=== PATIENT | female | born 1960 | race Caucasian/White ===

== ENCOUNTER → 2017-09-20 | Outpatient (CLI) | payer BC ==
[~2017-09-20] VITALS: Ht 160 cm; Wt 70.6 kg
[~2017-09-20] MED LIST: ALLO100T30 PO; ASPI-515 PO; ATOR20TA9 PO; BRAN1000 PO; CARV6.252 PO; CLON0.1T PO; ERGO500017 PO; FENTANYL PF 100 MCG/2ML ONE; FLUMAZENIL 0.1 MG/1 ML, 5ML ONE; GARL500C PO; LACT1CAP35 PO; LIDOCAINE 1%, 20ML ONE; LISI40TA PO; MIDAZOLAM 1 MG/ML, 5ML ONE; NALOXONE 1 MG/ML, 2ML ONE; PRED20TA PO; SODI650T PO; SODIUM CHLORIDE 0.9% 1,000 ML IV SCH
[2017-09-20 07:18] VITALS: BP 169/83
== END ==
LOC: OUT 05:58 → EDSTATUS 07:30 → OUT 17:00
PROVIDERS: ATTEND Internal Medicine Nephrology
DX: I12.9 Hypertensive chronic kidney disease with stage 1 through stage 4 chronic kidney disease, or unspecified chronic kidney disease (principal); N18.4 Chronic kidney disease, stage 4 (severe); N05.2 Unspecified nephritic syndrome with diffuse membranous glomerulonephritis; E79.0 Hyperuricemia without signs of inflammatory arthritis and tophaceous disease; E55.9 Vitamin D deficiency, unspecified; E61.1 Iron deficiency; E21.0 Primary hyperparathyroidism; E83.52 Hypercalcemia; Z87.441 Personal history of nephrotic syndrome
CPT/HCPCS: 36415; 85610; J2250; J3010; J7030; 77012; J3490; J2310

== ENCOUNTER 2018-04-09 08:16 | Day surgery (SDC) | payer BC ==
[~2018-04-09] VITALS: Ht 160 cm; Wt 62.0 kg
[~2018-04-09 08:16] MED LIST changes: -FENTANYL PF 100 MCG/2ML ONE; -FLUMAZENIL 0.1 MG/1 ML, 5ML ONE; -LIDOCAINE 1%, 20ML ONE; -MIDAZOLAM 1 MG/ML, 5ML ONE; -NALOXONE 1 MG/ML, 2ML ONE; -SODIUM CHLORIDE 0.9% 1,000 ML IV SCH
[2018-04-09] MEDS ORDERED: SODIUM CHLORIDE 0.9% 1,000 ML IV SCH (08:36)
[2018-04-09 08:37] VITALS: BP 162/89
[2018-04-09] MEDS ORDERED: PLEASE ENTER HEIGHT AND WEIGHT MC SCH (09:00)
[2018-04-09] MEDS ORDERED: PROTAMINE SULFATE 10 MG/ML, 5ML ONE (12:02)
[2018-04-09] MEDS ORDERED: HEPARIN 1,000 UNITS/ML, 10ML ONE (12:02)
[2018-04-09] MEDS ORDERED: BUPIVACAINE/PF 0.5% ONE (12:02)
[2018-04-09] MEDS ORDERED: EPINEPHRINE 1 MG/ML, 1ML ONE (12:03)
[2018-04-09] MEDS ORDERED: CEFAZOLIN 1,000 MG ONE (12:35)
[2018-04-09] MEDS ORDERED: PROPOFOL 10 MG/ML, 20ML ONE (12:35)
[2018-04-09] MEDS ORDERED: FENTANYL PF 100 MCG/2ML ONE ×2 (12:40→13:49)
[2018-04-09] MEDS ORDERED: MIDAZOLAM 1 MG/ML, 2ML ONE (12:41)
[2018-04-09] MEDS ORDERED: SUCCINYLCHOLINE 20 MG/ML, 10ML ONE ×2 (12:51)
[2018-04-09] MEDS ORDERED: ROCURONIUM 10MG/ML,5ML ONE (12:51)
[2018-04-09] MEDS ORDERED: NEOSTIGMINE 1 MG/ML, 10ML ONE (12:51)
[2018-04-09] MEDS ORDERED: GLYCOPYRROLATE 0.2MG/1ML, 5ML ONE (12:51)
[2018-04-09] MEDS ORDERED: DEXAMETHASONE 4 MG/ML, 1ML ONE (12:55)
[2018-04-09] MEDS ORDERED: OXYcodone 5 MG/5 ML ORAL.SOL UDC ONE (13:49)
[2018-04-09] MEDS ORDERED: MEPERIDINE/PF 25MG/0.5ML IVPush PRN (14:00)
[2018-04-09] MEDS ORDERED: FENTANYL PF 100 MCG/2ML IV PRN (14:00)
[2018-04-09] MEDS ORDERED: HYDROmorphone 1 MG/ML, 1ML IV PRN (14:00)
[2018-04-09] MEDS ORDERED: OXYcodone 5 MG/5 ML ORAL.SOL UDC PO PRN (14:00)
[2018-04-09] MEDS ORDERED: MIDAZOLAM 1 MG/ML, 2ML IV PRN (14:00)
[2018-04-09] MEDS ORDERED: ONDANSETRON 2MG/ML, 2ML IVPush PRN (14:00)
[2018-04-09] MEDS ORDERED: LABETALOL 5MG/ML, 20ML IV PRN (14:00)
== END 2018-04-09 15:55 ==
LOC: OUT 08:16
PROVIDERS: ATTEND Surgery Vascular Surgery
DX: I12.0 Hypertensive chronic kidney disease with stage 5 chronic kidney disease or end stage renal disease (principal); N18.6 End stage renal disease
CPT/HCPCS: 36415; 36821; 49324; 80047; C1750; J0171; J0330; J0690; J1100; J1644; J2250; J2704; J2710; J2720; J3010; J3490